=== PATIENT | male | born 1950 | race Caucasian/White ===

== ENCOUNTER 2020-10-25 11:18 | Emergency (ER) | payer BC, MEDICARE ==
[2020-10-25 11:21] VITALS: BP 134/76; PULSE 101; RESP 20; TEMP 98
[2020-10-25] MEDS ORDERED: LIDOCAINE 1% INJ 10MG/ML (20 ML MDV) SQ ONE (11:52)
[2020-10-25] MEDS ORDERED: DIPH,PERTUS(ACELL)TETVAC-LF 0.5 ML VIAL IM ONE (11:52)
[2020-10-25] MEDS ORDERED: BACITRACIN OINT 1 EACH PACKET TOPICAL ONE (11:52)
--- NOTE | 2020-10-25 13:03 | ED ---
Wound/Laceration HPI - General Chief Complaint: Wound/Laceration Stated Complaint: wrist lac Time Seen by Provider: 10/25/20 11:44 Source: patient Mode of arrival: ambulatory Limitations: no limitations - History of Present Illness Initial Comments: Patient is a 70-year-old male presenting to the emergency Department with complaints of a laceration to his left wrist. Patient was using a hand-held nut grinder on a car when it slipped and accidentally touched the left wrist area. This happened just prior to arrival. He is not on blood thinners. He is unsure of his last tetanus vaccine. His pain is minimal. He has no further complaints. Bleeding is controlled at this time. - Related Data Home Medications Medication Instructions Recorded Confirmed Cephalexin [Keflex] 500 mg PO TID 06/12/13 06/19/13 Tamsulosin HCl [Flomax] 0.4 mg PO DAILY 06/12/13 06/19/13 buPROPion XL [Wellbutrin XL] 150 mg PO DAILY 06/12/13 06/19/13 oxyCODONE-APAP 10-325MG [Percocet 1 each PO Q6HR PRN 06/12/13 06/19/13 10-325 mg] Fluticasone/Salmeterol [Advair 1 puff INHALATION Q12HR 06/19/13 06/19/13 500-50 Diskus] SUMAtriptan succinate [Imitrex] 06/19/13 06/19/13 Previous Rx's Medication Instructions Recorded Sulfamethox-Tmp 800-160Mg [Bactrim 1 each PO Q12HR #14 tab 06/19/13 DS 800-160 mg] Allergies Allergy/AdvReac Type Severity Reaction Status Date / Time aspirin Allergy Anaphylaxis Verified 10/25/20 11:21 ibuprofen [From Motrin] Allergy Unknown Verified 10/25/20 11:21 Review of Systems ROS Statement: Those systems with pertinent positive or pertinent negative responses have been documented in the HPI. ROS Other: All systems not noted in ROS Statement are negative. Past Medical History Past Medical History: Hypertension Additional Past Medical History / Comment(s): back pain. 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 occurred surgical intervention and a long course of antibiotic therapy. He's also had many difficulties orthopedically he's had many surgeries include a right total knee arthroplasty prior. arthroscopic repairs to his knee he's had a right shoulder repair right elbow repair laproscopic cholecystectomy on the History of Any Multi-Drug Resistant Organisms: MRSA Date of last positivie culture/infection: 1998 MDRO Source:: R knee Past Surgical History: Back Surgery, Cholecystectomy, Hernia Repair, Orthopedic Surgery Additional Past Surgical History / Comment(s): pain pump, R knee replaced, right, rotator cuff Past Psychological History: No Psychological Hx Reported Smoking Status: Never smoker Past Alcohol Use History: None Reported Past Drug Use History: None Reported General Exam - General Exam Comments Initial Comments: GENERAL: Patient is well-developed and well-nourished. Patient is nontoxic and in no acute distress. HEAD: Atraumatic, normocephalic. EYES: Pupils equal round and reactive to light, extraocular movements intact, sclera anicteric, conjunctiva are normal. Eyelids were unremarkable. LUNGS: Unlabored respirations. Breath sounds clear to auscultation bilaterally and equal. No wheezes rales or rhonchi. HEART: Regular rate and rhythm without murmurs, rubs or gallops. MUSCULOSKELETAL: She has full range of motion of his left hand and fingers, Normal extremities with adequate strength and normal range of motion, no pitting or edema. No clubbing or cyanosis. NEUROLOGICAL: Patient is alert and oriented x 3. SKIN: Warm, Dry, normal turgor, no rashes. He has a 3 cm superficial laceration to the left wrist, on the medial aspect. Limitations: no limitations Course Vital Signs 10/25/20 11:19 Temperature 98.0 F Pulse Rate 101 H Respiratory 20 Rate Blood Pressure 134/76 O2 Sat by Pulse 96 Oximetry Procedures - Laceration Laceration #1 Consent Obtained: verbal consent Indication: laceration Site: hand (Left wrist, medial aspect) Size (cm): 3 Description: linear Depth: simple, single layer Anesthetic Used: lidocaine 1% Anesthesia Technique: local infiltration Amount (mls): 4 Pre-repair: irrigated extensively Type of Sutures: nylon Size of Sutures: 5-0 Number of Sutures: 8 Technique: simple, interrupted Patient Tolerated Procedure: well Medical Decision Making - Medical Decision Making Patient is a 70-year-old male here with a 3 cm laceration to his left wrist after he accidentally touched it on a nut grinder. We did update his tetanus vaccine today. He is not on blood thinners, bleeding has been controlled. Patient's wound was cleaned, closed with 8, 50 sutures. He tolerated the procedure very well. Patient is stable for discharge. He will have sutures r emoved in 7-10 days. Return parameters were discussed with him and he verbalized understanding. Disposition Clinical Impression: Laceration of left wrist Disposition: HOME SELF-CARE Condition: Stable Instructions (If sedation given, give patient instructions): Care For Your Stitches (ED) Additional Instructions: Please return to the Emergency Department if symptoms worsen or any other concerns. Stitches need to be removed in 7-10 days as discussed. Please keep area clean and dry, may wash with mild soap and water once to twice daily. Is patient prescribed a controlled substance at d/c from ED?: No Referrals: Edward De Los Santos MD [Primary Care Provider] - 1-2 days Time of Disposition: 13:06
== END 2020-10-25 13:32 | disposition home or self-care (01) ==
LOC: EC 11:18
DX: S61.512A Laceration without foreign body of left wrist, initial encounter (principal); Z23 Encounter for immunization; I10 Essential (primary) hypertension; Z79.51 Long term (current) use of inhaled steroids; Z88.6 Allergy status to analgesic agent; Z90.49 Acquired absence of other specified parts of digestive tract; Z96.651 Presence of right artificial knee joint; W31.89XA Contact with other specified machinery, initial encounter
CPT/HCPCS: 90715; 99282; 12002; 90471; J2001

== ENCOUNTER 2021-12-06 09:21 | Day surgery (SDC) | payer BC, MEDICARE ==
[2021-12-04 15:52] VITALS: BMI 30.8
[~2021-12-06 09:21] MED LIST: LACTATED RINGERS 1,000 ML IV SCH
[2021-12-06 09:55] VITALS: RESP 16; TEMP 97.5
[2021-12-06] MEDS ORDERED: PROPOFOL 10 MG/ML 20 ML VIAL IV ONE (10:47)
[2021-12-06] MEDS ORDERED: LIDOCAINE 2% INJ 20 MG/ML (2 ML VIAL) ONE (10:47)
--- NOTE | 2021-12-06 11:22 | P.PCN ---
Date of Procedure: 12/06/21 Procedure(s) Performed: BRIEF HISTORY: Patient is a 74-year-old pleasant white male scheduled for an elective colonoscopy as a part of screening for colon cancer. PROCEDURE PERFORMED: Colonoscopy with snare polypectomy. PREOPERATIVE DIAGNOSIS: Screening for colon cancer. IV sedation per Anesthesia. PROCEDURE: After informed consent was obtained, the patient, was brought into the endoscopy unit. IV sedation was administered by Anesthesia under continuous monitoring. Digital rectal examination was normal. Initially the Olympus CF-160 flexible video colonoscope was then inserted in the rectum, gradually advanced into the cecum without any difficulty. Careful examination was performed as the scope was gradually being withdrawn. Ileocecal valve and the appendiceal orifice were visualized and appeared normal. Prep was excellent. Mucosa of the cecum, ascending colon, normal. In the transverse colon there was a 5 limited polyp that was removed by snare polypectomy. Rest of the transverse colon, descending colon, sigmoid colon, and rectum appeared normal. Retroflexion was performed in the rectum and no lesions were seen. The patient tolerated the procedure well. IMPRESSION: 5 mm transverse colon polyp status post polypectomy Rest of the colon appeared normal RECOMMENDATIONS: Findings of this examination were discussed with the patient as well as his family.. He was advised to follow with the biopsy results. If the biopsy results adenoma he can have a repeat colonoscopy in 5 years.
[2021-12-06 11:35] VITALS: BP 122/78; PULSE 67
== END 2021-12-06 11:50 | disposition home or self-care (01) ==
LOC: ORWHC2ENDO 09:21
PROVIDERS: ATTEND Internal Medicine Gastroenterology
DX: Z12.11 Encounter for screening for malignant neoplasm of colon (principal); K63.5 Polyp of colon; I10 Essential (primary) hypertension; F32.A Depression, unspecified; M54.9 Dorsalgia, unspecified; Z88.6 Allergy status to analgesic agent
CPT/HCPCS: 88305; 45385; J2704; J2001